=== PATIENT | female | born 1955 | race Caucasian/White ===

== ENCOUNTER 2022-06-11 15:03 | Inpatient (IN) | payer MEDICARE, OTHER ==
[2022-06-11 16:53] LABS: #Basophils 0.1 thou/uL (0.0-0.2); #Eosinphils 0.3 thou/uL (0.0-0.7); #Lymphocytes 2.4 thou/uL (1.20-3.40); #Neutrophils 6.4 thou/uL (1.40-6.50); %Basophils 1.1 % (0.0-1.0); %Lymphocytes 23.7 % (21.0-51.0); %Monocytes 9.7 % (0.0-10.0); %Neutrophils 62.5 % (42.0-75.0); Mean Corpuscular HGB CONC 32.3 g/dL (32.0-36.0); Mean Corpuscular Hemoglobin 28.3 pg (27.0-31.0); Mean Corpuscular Volume 87.5 fl (78.0-98.0); Mean Platelet Volume 8.6 fL (7.4-10.4); Platelet Count 234 10x3/uL (130-400); White Blood Cell (WBC) Count 10.2 10x3/uL (4.8-10.8)
[2022-06-11 17:11] LABS: Bacteria/HPF 2+ HPF (None Seen); Bilirubin Negative (Negative); Blood, Urine Trace (Negative); Clarity Turbid (Clear); Glucose, Urine (Dipstick) Greater than 1000 mg/dL (Negative); Ketone, Urine Negative (Negative); Leukocyte 250 Leu/uL (Negative); Nitrite Negative (Negative); Protein, Urine (Dipstick) 200 mg/dL (Neg-Trace); RBC/HPF 0-3 HPF (0-3); Specific Gravity, Urine 1.013 (1.002-1.036); Squamous Epithelial 0-3 HPF (0-3); Urobilinogen Normal mg/dL (Less than 2); WBC/HPF Greater than 50 HPF (0-3)
[2022-06-11] MEDS ORDERED: Acetaminophen 500 MG TAB ONE (17:15)
[2022-06-11] MEDS ORDERED: Ibuprofen 200 MG TAB ONE (17:15)
[2022-06-11 17:17] LABS: ALT (SGPT) 24 U/L (8-55); AST (SGOT) 18 U/L (5-34); Alkaline Phosphatase 129 U/L (40-110); Anion Gap 11 mmol/L (10-20); BUN (Urea Nitrogen) 18 mg/dL (9.8-20.1); Bilirubin, Total 0.4 mg/dL (0.2-1.2); Calc. Creatinine Clearance 0 mL/min (70-130); Calcium 9.3 mg/dL (7.8-10.44); Carbon Dioxide 26 mmol/L (23-31); Chloride 107 mmol/L (98-107); Estimated GFR 28; Globulin 3.6 g/dL (2.4-3.5); Glucose 97 mg/dL (80-115); Potassium 4.4 mmol/L (3.5-5.1); Protein, Total 7.6 g/dL (5.8-8.1); Sodium 140 mmol/L (136-145)
[2022-06-11] MEDS ORDERED: cefTRIAXone\\ROCEPHIN 2 GM VIAL ONE (18:24)
[2022-06-11] MEDS ORDERED: Senokot S 8.6-50 MG TAB PO PRN (22:21)
[2022-06-11] MEDS ORDERED: Acetaminophen 325 MG TAB PO PRN (22:21)
[2022-06-11] MEDS ORDERED: Sodium Chloride 0.9% 1,000 ML IV SCH (22:30)
[2022-06-11 22:45] LABS: Hemoglobin A1c 7.4 % (4.0-6.0)
[2022-06-12 07:28] LABS: #Basophils 0.1 thou/uL (0.0-0.2); #Eosinphils 0.3 thou/uL (0.0-0.7); #Lymphocytes 1.3 thou/uL (1.20-3.40); #Monocytes 0.9 thou/uL (0.11-0.59); %Basophils 0.6 % (0.0-1.0); %Eosinophils 2.6 % (0.0-10.0); %Lymphocytes 12.4 % (21.0-51.0); %Monocytes 8.4 % (0.0-10.0); %Neutrophils 76.1 % (42.0-75.0); Hemoglobin 12.7 g/dL (12.0-16.0); Mean Corpuscular HGB CONC 31.1 g/dL (32.0-36.0); Mean Corpuscular Hemoglobin 27.7 pg (27.0-31.0); Mean Corpuscular Volume 89.1 fl (78.0-98.0); Mean Platelet Volume 8.4 fL (7.4-10.4); Platelet Count 224 10x3/uL (130-400); RBC Distribution Width 14.1 % (11.5-14.5); Red Blood Cell (RBC) Count 4.59 mill/uL (4.20-5.40); White Blood Cell (WBC) Count 10.4 10x3/uL (4.8-10.8)
[2022-06-12 07:59] LABS: Anion Gap 13 mmol/L (10-20); BUN (Urea Nitrogen) 17 mg/dL (9.8-20.1); Calc. Creatinine Clearance 0 mL/min (70-130); Calcium 8.8 mg/dL (7.8-10.44); Carbon Dioxide 25 mmol/L (23-31); Chloride 110 mmol/L (98-107); Estimated GFR 33; Glucose 135 mg/dL (80-115); Sodium 144 mmol/L (136-145)
[2022-06-12] MEDS ORDERED: Famotidine 20 MG TAB ONE (09:33)
[2022-06-12] MEDS: Heparin 5,000 UNITS/ML VIAL SC SCH ×3 (09:41→20:28)
[2022-06-12] MEDS: Famotidine 20 MG TAB PO SCH (09:43)
[2022-06-12] MEDS ORDERED: Dextrose 5% in Water 1,000 ML IV PRN (10:23)
[2022-06-12] MEDS ORDERED: Dextrose 50% Abboject 50 ML SYRINGE SLOW IVP PRN (10:23)
[2022-06-12] MEDS ORDERED: HumaLOG 300 UNITS/3 ML VIAL SC PRN ×2 (10:23)
[2022-06-12 11:14] VITALS: BMI 35.7
[2022-06-12] MEDS ORDERED: FLU VACC QS2022-23(65YR UP)/PF 240 MCG/0.7 ML SYRINGE IM ONE (11:30)
[2022-06-12] MEDS ORDERED: Amlodipine 10 MG TAB PO SCH (14:15)
[2022-06-12] MEDS: cefTRIAXone\\ROCEPHIN 2 GM in Sodium Chloride 0.9% 100 ML IVPB SCH (17:30)
[2022-06-12] MEDS: Sodium Bicarbonate Tab 325 MG TAB PO SCH (20:30)
[2022-06-12] MEDS: Atorvastatin Calcium 40 MG TAB PO SCH (20:30)
[2022-06-13 06:52] LABS: #Eosinphils 0.3 thou/uL (0.0-0.7); #Lymphocytes 2.3 thou/uL (1.20-3.40); #Monocytes 1.2 thou/uL (0.11-0.59); #Neutrophils 6.1 thou/uL (1.40-6.50); %Basophils 0.3 % (0.0-1.0); %Lymphocytes 23.2 % (21.0-51.0); %Monocytes 12.4 % (0.0-10.0); %Neutrophils 61.1 % (42.0-75.0); Hemoglobin 13.1 g/dL (12.0-16.0); Mean Corpuscular HGB CONC 31.3 g/dL (32.0-36.0); Mean Corpuscular Hemoglobin 27.7 pg (27.0-31.0); Mean Corpuscular Volume 88.5 fl (78.0-98.0); Mean Platelet Volume 8.7 fL (7.4-10.4); Platelet Count 213 10x3/uL (130-400); Red Blood Cell (RBC) Count 4.74 mill/uL (4.20-5.40)
[2022-06-13 07:13] LABS: Anion Gap 13 mmol/L (10-20); BUN (Urea Nitrogen) 16 mg/dL (9.8-20.1); Calc. Creatinine Clearance 49 mL/min (70-130); Calcium 9.3 mg/dL (7.8-10.44); Carbon Dioxide 22 mmol/L (23-31); Chloride 110 mmol/L (98-107); Estimated GFR 35; Glucose 110 mg/dL (80-115); Potassium 3.8 mmol/L (3.5-5.1); Sodium 141 mmol/L (136-145)
[2022-06-13] MEDS: Aspirin 81 mg Enteric Coated Tablet PO SCH (08:09)
[2022-06-13] MEDS: Amitriptyline HCl 25 MG TAB PO SCH (08:10)
[2022-06-13] MEDS: Cholecalciferol 1,000 UNITS (25 MCG) TAB PO SCH (08:10)
[2022-06-13] MEDS: Empagliflozin 25 MG TAB PO SCH (08:11)
[2022-06-13] MEDS: Sodium Bicarbonate Tab 325 MG TAB PO SCH ×2 (08:11→20:23)
[2022-06-13] MEDS: Famotidine 20 MG TAB PO SCH (08:11)
[2022-06-13] MEDS: Amlodipine 10 MG TAB PO SCH (08:11)
[2022-06-13] MEDS: Bupropion 150 MG SR TAB PO SCH (08:12)
[2022-06-13] MEDS: Heparin 5,000 UNITS/ML VIAL SC SCH ×2 (08:13→15:49)
[2022-06-13] MEDS ORDERED: Pioglitazone HCl 15 MG TAB PO SCH (09:00)
[2022-06-13] MEDS: cefTRIAXone\\ROCEPHIN 2 GM in Sodium Chloride 0.9% 100 ML IVPB SCH ×2 (18:35→18:43)
[2022-06-13] MEDS: Atorvastatin Calcium 40 MG TAB PO SCH (20:23)
[2022-06-13] MEDS: Apixaban 5 MG TAB PO SCH (20:23)
[2022-06-14 06:24] LABS: #Basophils 0.1 thou/uL (0.0-0.2); #Eosinphils 0.4 thou/uL (0.0-0.7); #Monocytes 1.1 thou/uL (0.11-0.59); #Neutrophils 5.1 thou/uL (1.40-6.50); %Eosinophils 3.6 % (0.0-10.0); %Lymphocytes 30.6 % (21.0-51.0); %Monocytes 11.6 % (0.0-10.0); %Neutrophils 53.2 % (42.0-75.0); Hemoglobin 12.5 g/dL (12.0-16.0); Mean Corpuscular HGB CONC 31.3 g/dL (32.0-36.0); Mean Corpuscular Hemoglobin 27.6 pg (27.0-31.0); Mean Corpuscular Volume 87.9 fl (78.0-98.0); Mean Platelet Volume 8.6 fL (7.4-10.4); Platelet Count 216 10x3/uL (130-400); Red Blood Cell (RBC) Count 4.54 mill/uL (4.20-5.40); White Blood Cell (WBC) Count 9.7 10x3/uL (4.8-10.8)
[2022-06-14 06:50] LABS: Anion Gap 12 mmol/L (10-20); BUN (Urea Nitrogen) 22 mg/dL (9.8-20.1); Calc. Creatinine Clearance 45 mL/min (70-130); Calcium 8.9 mg/dL (7.8-10.44); Carbon Dioxide 21 mmol/L (23-31); Chloride 112 mmol/L (98-107); Estimated GFR 32; Glucose 121 mg/dL (80-115); Potassium 3.5 mmol/L (3.5-5.1); Sodium 141 mmol/L (136-145)
[2022-06-14] MEDS: Famotidine 20 MG TAB PO SCH (08:43)
[2022-06-14] MEDS: Sodium Bicarbonate Tab 325 MG TAB PO SCH ×2 (08:43→21:20)
[2022-06-14] MEDS: Aspirin 81 mg Enteric Coated Tablet PO SCH (08:43)
[2022-06-14] MEDS: Apixaban 5 MG TAB PO SCH ×2 (08:43→21:21)
[2022-06-14] MEDS: Amitriptyline HCl 25 MG TAB PO SCH (08:43)
[2022-06-14] MEDS: Bupropion 150 MG SR TAB PO SCH (08:43)
[2022-06-14] MEDS: Amlodipine 10 MG TAB PO SCH (08:43)
[2022-06-14] MEDS: Cholecalciferol 1,000 UNITS (25 MCG) TAB PO SCH (08:43)
[2022-06-14] MEDS: Empagliflozin 25 MG TAB PO SCH (08:45)
[2022-06-14] MEDS: cefTRIAXone\\ROCEPHIN 2 GM in Sodium Chloride 0.9% 100 ML IVPB SCH (18:37)
[2022-06-14] MEDS: Atorvastatin Calcium 40 MG TAB PO SCH (21:21)
[2022-06-15] MEDS: Amitriptyline HCl 25 MG TAB PO SCH (08:06)
[2022-06-15] MEDS: Sodium Bicarbonate Tab 325 MG TAB PO SCH ×2 (08:06→20:25)
[2022-06-15] MEDS: Empagliflozin 25 MG TAB PO SCH (08:06)
[2022-06-15] MEDS: Cholecalciferol 1,000 UNITS (25 MCG) TAB PO SCH (08:06)
[2022-06-15] MEDS: Apixaban 5 MG TAB PO SCH ×2 (08:07→20:25)
[2022-06-15] MEDS: Famotidine 20 MG TAB PO SCH (08:07)
[2022-06-15] MEDS: Bupropion 150 MG SR TAB PO SCH (08:07)
[2022-06-15] MEDS: Amlodipine 10 MG TAB PO SCH (08:07)
[2022-06-15] MEDS: Aspirin 81 mg Enteric Coated Tablet PO SCH (08:07)
[2022-06-15 13:12] LABS: Anion Gap 15 mmol/L (10-20); BUN (Urea Nitrogen) 29 mg/dL (9.8-20.1); Calc. Creatinine Clearance 40 mL/min (70-130); Calcium 9.3 mg/dL (7.8-10.44); Carbon Dioxide 24 mmol/L (23-31); Chloride 108 mmol/L (98-107); Estimated GFR 28; Glucose 183 mg/dL (80-115); Potassium 3.7 mmol/L (3.5-5.1); Sodium 143 mmol/L (136-145)
[2022-06-15] MEDS ORDERED: Melatonin 3 MG TAB PO PRN (16:21)
[2022-06-15] MEDS: Cefdinir 300 MG CAP PO SCH (20:24)
[2022-06-15] MEDS: Atorvastatin Calcium 40 MG TAB PO SCH (20:24)
[2022-06-16 08:11] LABS: Anion Gap 15 mmol/L (10-20); BUN (Urea Nitrogen) 28 mg/dL (9.8-20.1); Calc. Creatinine Clearance 41 mL/min (70-130); Carbon Dioxide 20 mmol/L (23-31); Chloride 114 mmol/L (98-107); Potassium 3.9 mmol/L (3.5-5.1); Sodium 145 mmol/L (136-145)
[2022-06-16 08:12] LABS: Calcium 9.3 mg/dL (7.8-10.44); Estimated GFR 28; Glucose 109 mg/dL (80-115)
[2022-06-16] MEDS ORDERED: Sodium Bicarbonate Tab 325 MG TAB PO SCH (09:00)
[2022-06-16] MEDS: Amitriptyline HCl 25 MG TAB PO SCH (09:19)
[2022-06-16] MEDS: Aspirin 81 mg Enteric Coated Tablet PO SCH (09:19)
[2022-06-16] MEDS: Famotidine 20 MG TAB PO SCH (09:20)
[2022-06-16] MEDS: Amlodipine 10 MG TAB PO SCH (09:20)
[2022-06-16] MEDS: Cholecalciferol 1,000 UNITS (25 MCG) TAB PO SCH (09:20)
[2022-06-16] MEDS: Bupropion 150 MG SR TAB PO SCH (09:20)
[2022-06-16] MEDS: Cefdinir 300 MG CAP PO SCH (09:20)
[2022-06-16] MEDS: Apixaban 5 MG TAB PO SCH (09:20)
[2022-06-16] MEDS: Empagliflozin 25 MG TAB PO SCH (09:20)
[2022-06-16 15:36] VITALS: TEMP 97.6
[2022-06-16 17:01] VITALS: BP 156/88
== END 2022-06-16 17:01 | disposition home health service (06) | DRG 689 ==
LOC: ERS 15:03 → ERHOLD 21:35 → T4-B 06-12 10:29 → OBSVTOIN 06-12 16:40
PROVIDERS: ADMIT Internal Medicine; ATTEND Internal Medicine
DX: N39.0 Urinary tract infection, site not specified (principal); G93.41 Metabolic encephalopathy; N18.4 Chronic kidney disease, stage 4 (severe); N17.9 Acute kidney failure, unspecified; E87.20 Acidosis, unspecified; F03.90 Unspecified dementia, unspecified severity, without behavioral disturbance, psychotic disturbance, mood disturbance, and anxiety; B96.20 Unspecified Escherichia coli [E. coli] as the cause of diseases classified elsewhere; I25.10 Atherosclerotic heart disease of native coronary artery without angina pectoris; E11.22 Type 2 diabetes mellitus with diabetic chronic kidney disease; I12.9 Hypertensive chronic kidney disease with stage 1 through stage 4 chronic kidney disease, or unspecified chronic kidney disease; Z88.0 Allergy status to penicillin; Z28.21 Immunization not carried out because of patient refusal; I69.328 Other speech and language deficits following cerebral infarction; Z87.440 Personal history of urinary (tract) infections
CPT/HCPCS: 36415; 36416; 51701; 70450; 71046; 76770; 80048; 80053; 81003; 81015; 83036; 84443; 85025; 87040; 87077; 87086; 87186; 93005; 96365; G0378; J0696; J1644; J3490; J7050

== ENCOUNTER 2022-11-19 16:59 | Inpatient (IN) | payer MEDICARE ==
[2022-11-19 18:15] LABS: #Basophils 0.1 thou/uL (0.0-0.2); #Monocytes 1.1 thou/uL (0.11-0.59); #Neutrophils 18.8 thou/uL (1.40-6.50); %Basophils 0.3 % (0.0-1.0); %Lymphocytes 10.4 % (21.0-51.0); %Neutrophils 83.5 % (42.0-75.0); Hemoglobin 8.7 g/dL (12.0-16.0); Mean Corpuscular HGB CONC 30.3 g/dL (32.0-36.0); Mean Corpuscular Hemoglobin 26.9 pg (27.0-31.0); Mean Corpuscular Volume 88.9 fl (78.0-98.0); Mean Platelet Volume 10.9 fL (7.4-10.4); Platelet Count 214 10x3/uL (130-400); RBC Distribution Width 17.5 % (11.5-14.5); Red Blood Cell (RBC) Count 3.23 mill/uL (4.20-5.40); White Blood Cell (WBC) Count 22.5 10x3/uL (4.8-10.8)
[2022-11-19 18:33] LABS: Bacteria/HPF 4+ HPF (None Seen); Bilirubin Negative (Negative); Blood, Urine Trace (Negative); Clarity Turbid (Clear); Glucose, Urine (Dipstick) 500 mg/dL (Negative); Ketone, Urine Negative (Negative); Leukocyte 500 Leu/uL (Negative); Nitrite Negative (Negative); Protein, Urine (Dipstick) 50 mg/dL (Neg-Trace); RBC/HPF 0-3 HPF (0-3); Specific Gravity, Urine 1.014 (1.002-1.036); Squamous Epithelial 0-3 HPF (0-3); Urobilinogen Normal mg/dL (Less than 2); WBC/HPF Greater than 50 HPF (0-3)
[2022-11-19 18:36] LABS: ALT (SGPT) 28 U/L (8-55); AST (SGOT) 22 U/L (5-34); Albumin 3.6 g/dL (3.4-4.8); Alkaline Phosphatase 70 U/L (40-110); Anion Gap 17 mmol/L (10-20); BUN (Urea Nitrogen) 86 mg/dL (9.8-20.1); Bilirubin, Total 0.4 mg/dL (0.2-1.2); Calc. Creatinine Clearance 0 mL/min (70-130); Calcium 8.9 mg/dL (7.8-10.44); Carbon Dioxide 16 mmol/L (23-31); Chloride 119 mmol/L (98-107); Estimated GFR 21; Globulin 2.3 g/dL (2.4-3.5); Glucose 163 mg/dL (80-115); Lipase 48 U/L (8-78); Magnesium 2.3 mg/dL (1.6-2.6); Potassium 4.9 mmol/L (3.5-5.1); Protein, Total 5.9 g/dL (5.8-8.1); Sodium 147 mmol/L (136-145)
[2022-11-19] MEDS ORDERED: Cefepime 2 GM VIAL ONE (18:58)
[2022-11-19 21:21] LABS: Lactic Acid 3.3 mmol/L (0.5-2.2)
[2022-11-19] MEDS ORDERED: Dextrose 5%-Lactated Ringers 1,000 ML IV SCH (23:15)
[2022-11-19] MEDS ORDERED: Lactated Ringer's 500 ML IV SCH (23:30)
[2022-11-19] MEDS ORDERED: Ondansetron PF 4 MG/2 ML Vial IVP PRN (23:31)
[2022-11-19] MEDS ORDERED: Acetaminophen 325 MG TAB PO PRN (23:31)
[2022-11-19] MEDS ORDERED: Calcium Carbonate 500 MG ChewTAB PO PRN (23:31)
[2022-11-19] MEDS ORDERED: Ondansetron ODT 4 MG TAB PO PRN (23:31)
[2022-11-19] MEDS ORDERED: Senokot S 8.6-50 MG TAB PO PRN (23:31)
[2022-11-20 01:41] LABS: Troponin I 0.038 ng/mL (< 0.028)
[2022-11-20 04:28] LABS: #Basophils 0.1 thou/uL (0.0-0.2); #Monocytes 1.4 thou/uL (0.11-0.59); %Basophils 0.5 % (0.0-1.0); %Eosinophils 0.3 % (0.0-10.0); %Lymphocytes 24.6 % (21.0-51.0); %Monocytes 9.3 % (0.0-10.0); %Neutrophils 64.9 % (42.0-75.0); Hemoglobin 7.5 g/dL (12.0-16.0); Mean Corpuscular HGB CONC 30.1 g/dL (32.0-36.0); Mean Corpuscular Hemoglobin 27.5 pg (27.0-31.0); Mean Corpuscular Volume 91.2 fl (78.0-98.0); Mean Platelet Volume 10.7 fL (7.4-10.4); Platelet Count 204 10x3/uL (130-400); Red Blood Cell (RBC) Count 2.73 mill/uL (4.20-5.40); White Blood Cell (WBC) Count 15.3 10x3/uL (4.8-10.8)
[2022-11-20 04:43] LABS: ALT (SGPT) 21 U/L (8-55); AST (SGOT) 16 U/L (5-34); Albumin 3.1 g/dL (3.4-4.8); Alkaline Phosphatase 54 U/L (40-110); Anion Gap 13 mmol/L (10-20); BUN (Urea Nitrogen) 67 mg/dL (9.8-20.1); Bilirubin, Total 0.2 mg/dL (0.2-1.2); Calc. Creatinine Clearance 36 mL/min (70-130); Calcium 8.4 mg/dL (7.8-10.44); Carbon Dioxide 20 mmol/L (23-31); Chloride 120 mmol/L (98-107); Estimated GFR 27; Globulin 2.2 g/dL (2.4-3.5); Glucose 113 mg/dL (80-115); Potassium 4.2 mmol/L (3.5-5.1); Protein, Total 5.3 g/dL (5.8-8.1); Sodium 149 mmol/L (136-145)
[2022-11-20 04:45] LABS: Lactic Acid 1.7 mmol/L (0.5-2.2)
[2022-11-20 04:47] LABS: Troponin I 0.051 ng/mL (< 0.028)
[2022-11-20 05:01] LABS: Hemoglobin A1c 6.6 % (4.0-6.0)
[2022-11-20] MEDS ORDERED: Cefepime 1 GM in Sodium Chloride 0.9% 100 ML IVPB SCH (09:00)
[2022-11-20] MEDS ORDERED: Aspirin 81 mg Enteric Coated Tablet PO SCH (09:00)
[2022-11-20] MEDS ORDERED: Famotidine/PF 20 mg/2ml Vial SLOW IVP SCH (09:00)
[2022-11-20] MEDS ORDERED: Famotidine 20 MG TAB PO SCH (09:00)
[2022-11-20] MEDS: Dextrose 5% in Water 500 ML IV SCH ×2 (09:56→21:39)
[2022-11-20] MEDS: Heparin 5,000 UNITS/ML VIAL SC SCH ×3 (09:57→21:46)
[2022-11-20] MEDS: Atorvastatin Calcium 40 MG TAB PO SCH (10:00)
[2022-11-20] MEDS: Empagliflozin 25 MG TAB PO SCH (10:00)
[2022-11-20] MEDS: Sodium Bicarbonate Tab 325 MG TAB PO SCH (10:00)
[2022-11-20] MEDS: Bupropion 150 MG SR TAB PO SCH (10:01)
[2022-11-20] MEDS: Cholecalciferol 1,000 UNITS (25 MCG) TAB PO SCH (10:01)
[2022-11-20] MEDS: Amitriptyline HCl 25 MG TAB PO SCH (10:01)
[2022-11-20] MEDS: Amlodipine 10 MG TAB PO SCH (10:01)
[2022-11-20 13:23] LABS: Anion Gap 13 mmol/L (10-20); BUN (Urea Nitrogen) 56 mg/dL (9.8-20.1); Calc. Creatinine Clearance 38 mL/min (70-130); Calcium 8.8 mg/dL (7.8-10.44); Carbon Dioxide 18 mmol/L (23-31); Chloride 123 mmol/L (98-107); Estimated GFR 30; Glucose 148 mg/dL (80-115); Potassium 4.1 mmol/L (3.5-5.1); Sodium 150 mmol/L (136-145)
[2022-11-20] MEDS: Cefepime 1 GM in Sodium Chloride 0.9% 100 ML IVPB SCH (21:42)
[2022-11-21 04:19] LABS: #Basophils 0.1 thou/uL (0.0-0.2); #Eosinphils 0.2 thou/uL (0.0-0.7); #Monocytes 0.8 thou/uL (0.11-0.59); %Basophils 0.5 % (0.0-1.0); %Eosinophils 1.9 % (0.0-10.0); %Lymphocytes 35.5 % (21.0-51.0); %Monocytes 7.6 % (0.0-10.0); %Neutrophils 54.2 % (42.0-75.0); Hemoglobin 6.2 g/dL (12.0-16.0); Mean Corpuscular HGB CONC 30.1 g/dL (32.0-36.0); Mean Corpuscular Hemoglobin 26.8 pg (27.0-31.0); Mean Corpuscular Volume 89.2 fl (78.0-98.0); Mean Platelet Volume 11.1 fL (7.4-10.4); Platelet Count 177 10x3/uL (130-400); RBC Distribution Width 18.4 % (11.5-14.5); Red Blood Cell (RBC) Count 2.31 mill/uL (4.20-5.40)
[2022-11-21 04:32] LABS: Anion Gap 11 mmol/L (10-20); BUN (Urea Nitrogen) 40 mg/dL (9.8-20.1); Calc. Creatinine Clearance 39 mL/min (70-130); Calcium 8.8 mg/dL (7.8-10.44); Carbon Dioxide 21 mmol/L (23-31); Chloride 122 mmol/L (98-107); Estimated GFR 30; Glucose 115 mg/dL (80-115); Potassium 3.6 mmol/L (3.5-5.1); Sodium 150 mmol/L (136-145)
[2022-11-21] MEDS: Dextrose 5% in Water 500 ML IV SCH ×3 (05:28→13:25)
[2022-11-21] MEDS ORDERED: Furosemide 40 MG/4 ML VIAL SLOW IVP SCH (09:00)
[2022-11-21] MEDS: Pantoprazole 40 MG VIAL IVP SCH ×2 (09:13→21:26)
[2022-11-21] MEDS: Cefepime 1 GM in Sodium Chloride 0.9% 100 ML IVPB SCH ×2 (09:13→21:25)
[2022-11-21] MEDS: Amitriptyline HCl 25 MG TAB PO SCH (10:22)
[2022-11-21] MEDS: Bupropion 150 MG SR TAB PO SCH (10:22)
[2022-11-21] MEDS: Cholecalciferol 1,000 UNITS (25 MCG) TAB PO SCH (10:22)
[2022-11-21] MEDS: Sodium Bicarbonate Tab 325 MG TAB PO SCH (10:22)
[2022-11-21] MEDS: Empagliflozin 25 MG TAB PO SCH (10:22)
[2022-11-21] MEDS: Amlodipine 10 MG TAB PO SCH (10:22)
[2022-11-21] MEDS: Atorvastatin Calcium 40 MG TAB PO SCH (10:22)
[2022-11-21 14:16] LABS: #Basophils 0.1 thou/uL (0.0-0.2); #Eosinphils 0.3 thou/uL (0.0-0.7); #Monocytes 0.9 thou/uL (0.11-0.59); #Neutrophils 5.1 thou/uL (1.40-6.50); %Basophils 0.7 % (0.0-1.0); %Eosinophils 2.7 % (0.0-10.0); %Lymphocytes 33.4 % (21.0-51.0); %Monocytes 9.3 % (0.0-10.0); %Neutrophils 53.6 % (42.0-75.0); Hemoglobin 8.2 g/dL (12.0-16.0); Mean Corpuscular HGB CONC 30.4 g/dL (32.0-36.0); Mean Corpuscular Hemoglobin 27.5 pg (27.0-31.0); Mean Corpuscular Volume 90.6 fl (78.0-98.0); Mean Platelet Volume 10.8 fL (7.4-10.4); Platelet Count 159 10x3/uL (130-400); Red Blood Cell (RBC) Count 2.98 mill/uL (4.20-5.40); White Blood Cell (WBC) Count 9.5 10x3/uL (4.8-10.8)
[2022-11-21 14:36] LABS: Anion Gap 14 mmol/L (10-20); BUN (Urea Nitrogen) 33 mg/dL (9.8-20.1); Calc. Creatinine Clearance 37 mL/min (70-130); Calcium 8.7 mg/dL (7.8-10.44); Carbon Dioxide 21 mmol/L (23-31); Chloride 113 mmol/L (98-107); Estimated GFR 28; Glucose 170 mg/dL (80-115); Potassium 3.6 mmol/L (3.5-5.1); Sodium 144 mmol/L (136-145)
[2022-11-22] MEDS: Dextrose 5 % And 0.9 % NaCl 1,000 ML IV SCH ×3 (01:44→23:28)
[2022-11-22 04:38] LABS: #Basophils 0.1 thou/uL (0.0-0.2); #Eosinphils 0.2 thou/uL (0.0-0.7); #Monocytes 0.9 thou/uL (0.11-0.59); #Neutrophils 5.2 thou/uL (1.40-6.50); %Basophils 0.5 % (0.0-1.0); %Eosinophils 2.5 % (0.0-10.0); %Lymphocytes 31.3 % (21.0-51.0); %Monocytes 9.3 % (0.0-10.0); %Neutrophils 56.2 % (42.0-75.0); Hemoglobin 7.8 g/dL (12.0-16.0); Mean Corpuscular HGB CONC 30.6 g/dL (32.0-36.0); Mean Corpuscular Hemoglobin 27.4 pg (27.0-31.0); Mean Corpuscular Volume 89.5 fl (78.0-98.0); Mean Platelet Volume 11.2 fL (7.4-10.4); Platelet Count 181 10x3/uL (130-400); RBC Distribution Width 17.5 % (11.5-14.5); Red Blood Cell (RBC) Count 2.85 mill/uL (4.20-5.40); White Blood Cell (WBC) Count 9.3 10x3/uL (4.8-10.8)
[2022-11-22 05:07] LABS: Anion Gap 9 mmol/L (10-20); BUN (Urea Nitrogen) 31 mg/dL (9.8-20.1); Calc. Creatinine Clearance 36 mL/min (70-130); Calcium 8.6 mg/dL (7.8-10.44); Carbon Dioxide 24 mmol/L (23-31); Chloride 113 mmol/L (98-107); Estimated GFR 28; Glucose 110 mg/dL (80-115); Potassium 3.4 mmol/L (3.5-5.1); Sodium 143 mmol/L (136-145)
[2022-11-22] MEDS: Atorvastatin Calcium 40 MG TAB PO SCH (10:24)
[2022-11-22] MEDS: Amlodipine 10 MG TAB PO SCH (10:24)
[2022-11-22] MEDS: Amitriptyline HCl 25 MG TAB PO SCH (10:24)
[2022-11-22] MEDS: Bupropion 150 MG SR TAB PO SCH (10:24)
[2022-11-22] MEDS: Cholecalciferol 1,000 UNITS (25 MCG) TAB PO SCH (10:25)
[2022-11-22] MEDS: Empagliflozin 25 MG TAB PO SCH (10:25)
[2022-11-22] MEDS: Sodium Bicarbonate Tab 325 MG TAB PO SCH (10:25)
[2022-11-22] MEDS: Cefepime 1 GM in Sodium Chloride 0.9% 100 ML IVPB SCH ×2 (10:58→20:36)
[2022-11-22] MEDS: Pantoprazole 40 MG VIAL IVP SCH ×2 (10:59→20:36)
[2022-11-22 13:38] LABS: Hemoglobin 7.9 g/dL (12.0-16.0); Platelet Count 163 10x3/uL (130-400)
[2022-11-22] MEDS: GoLYTELY 4,000 ml Bottle PO SCH ×2 (15:45→16:05)
[2022-11-23] MEDS ORDERED: Sodium Chloride 0.9% 500 ML IV SCH (01:00)
[2022-11-23] MEDS ORDERED: Metoprolol Tartrate 5 MG/5 ML VIAL IVP SCH (01:15)
[2022-11-23 05:01] LABS: #Eosinphils 0.1 thou/uL (0.0-0.7); #Monocytes 0.8 thou/uL (0.11-0.59); #Neutrophils 8.9 thou/uL (1.40-6.50); %Basophils 0.4 % (0.0-1.0); %Eosinophils 1.1 % (0.0-10.0); %Lymphocytes 12.3 % (21.0-51.0); %Monocytes 7.2 % (0.0-10.0); %Neutrophils 78.6 % (42.0-75.0); Hemoglobin 8.5 g/dL (12.0-16.0); Mean Corpuscular Hemoglobin 27.5 pg (27.0-31.0); Mean Corpuscular Volume 88.7 fl (78.0-98.0); Mean Platelet Volume 11.3 fL (7.4-10.4); Platelet Count 198 10x3/uL (130-400); RBC Distribution Width 17.7 % (11.5-14.5); Red Blood Cell (RBC) Count 3.09 mill/uL (4.20-5.40); White Blood Cell (WBC) Count 11.3 10x3/uL (4.8-10.8)
[2022-11-23 05:29] LABS: Anion Gap 11 mmol/L (10-20); BUN (Urea Nitrogen) 16 mg/dL (9.8-20.1); Calc. Creatinine Clearance 47 mL/min (70-130); Calcium 8.4 mg/dL (7.8-10.44); Carbon Dioxide 20 mmol/L (23-31); Chloride 117 mmol/L (98-107); Estimated GFR 37; Glucose 168 mg/dL (80-115); Potassium 2.9 mmol/L (3.5-5.1); Sodium 145 mmol/L (136-145)
[2022-11-23] MEDS ORDERED: Electrolyte Replacement Protocol 1 EACH FS SCH (08:30)
[2022-11-23] MEDS: Potassium Chloride 20 MEQ in Premix Bag 1 BAG IVPB SCH ×4 (09:17→15:56)
[2022-11-23] MEDS ORDERED: Ketamine In 0.9 % NaCl 50 MG/5 ML SYRINGE ONE (10:13)
[2022-11-23] MEDS ORDERED: PROPOFOL 40 ML ONE (10:13)
[2022-11-23] MEDS ORDERED: PROPOFOL 200 MG/20 ML VIAL ONE (10:15)
[2022-11-23] MEDS ORDERED: PHENYLEPHRINE-NS 100 MCG/ML 10 ML SYRINGE ONE (10:15)
[2022-11-23] MEDS: Cholecalciferol 1,000 UNITS (25 MCG) TAB PO SCH (12:30)
[2022-11-23] MEDS: Sodium Bicarbonate Tab 325 MG TAB PO SCH (12:30)
[2022-11-23] MEDS: Empagliflozin 25 MG TAB PO SCH (12:30)
[2022-11-23] MEDS: Atorvastatin Calcium 40 MG TAB PO SCH (12:30)
[2022-11-23] MEDS: Amitriptyline HCl 25 MG TAB PO SCH (12:31)
[2022-11-23] MEDS: Amlodipine 10 MG TAB PO SCH (12:31)
[2022-11-23] MEDS: Cefepime 1 GM in Sodium Chloride 0.9% 100 ML IVPB SCH ×2 (12:37→20:40)
[2022-11-23] MEDS: Bupropion 150 MG SR TAB PO SCH (12:37)
[2022-11-23] MEDS: Pantoprazole 40 MG VIAL IVP SCH ×2 (12:38→20:40)
[2022-11-23] MEDS: Dextrose 5 % And 0.9 % NaCl 1,000 ML IV SCH (12:38)
[2022-11-23 13:37] LABS: Magnesium 1.8 mg/dL (1.6-2.6); Potassium 3.1 mmol/L (3.5-5.1)
[2022-11-23] MEDS ORDERED: Magnesium 2 GM/50 ML(in water) 2 GM in Premix Bag 1 BAG IVPB SCH (14:15)
[2022-11-24 06:56] LABS: #Basophils 0.1 thou/uL (0.0-0.2); #Eosinphils 0.4 thou/uL (0.0-0.7); #Neutrophils 6.2 thou/uL (1.40-6.50); %Basophils 0.6 % (0.0-1.0); %Eosinophils 3.5 % (0.0-10.0); %Lymphocytes 22.9 % (21.0-51.0); %Monocytes 10.4 % (0.0-10.0); %Neutrophils 62.3 % (42.0-75.0); Hemoglobin 7.5 g/dL (12.0-16.0); Mean Corpuscular HGB CONC 31.1 g/dL (32.0-36.0); Mean Corpuscular Hemoglobin 28.1 pg (27.0-31.0); Mean Corpuscular Volume 90.3 fl (78.0-98.0); Mean Platelet Volume 10.6 fL (7.4-10.4); Platelet Count 169 10x3/uL (130-400); RBC Distribution Width 17.9 % (11.5-14.5); Red Blood Cell (RBC) Count 2.67 mill/uL (4.20-5.40); White Blood Cell (WBC) Count 9.9 10x3/uL (4.8-10.8)
[2022-11-24 07:21] LABS: Anion Gap 10 mmol/L (10-20); BUN (Urea Nitrogen) 10 mg/dL (9.8-20.1); Calc. Creatinine Clearance 49 mL/min (70-130); Calcium 8.4 mg/dL (7.8-10.44); Carbon Dioxide 19 mmol/L (23-31); Chloride 115 mmol/L (98-107); Estimated GFR 38; Glucose 119 mg/dL (80-115); Magnesium 2.2 mg/dL (1.6-2.6); Potassium 3.2 mmol/L (3.5-5.1); Sodium 141 mmol/L (136-145)
[2022-11-24] MEDS ORDERED: Potassium Chloride 20 MEQ TAB PO SCH (08:30)
[2022-11-24] MEDS: Cefepime 1 GM in Sodium Chloride 0.9% 100 ML IVPB SCH ×2 (11:41→20:07)
[2022-11-24] MEDS: Amitriptyline HCl 25 MG TAB PO SCH (11:42)
[2022-11-24] MEDS: Cholecalciferol 1,000 UNITS (25 MCG) TAB PO SCH (11:42)
[2022-11-24] MEDS: Amlodipine 10 MG TAB PO SCH (11:42)
[2022-11-24] MEDS: Pantoprazole 40 MG VIAL IVP SCH ×2 (11:42→20:07)
[2022-11-24] MEDS: Sodium Bicarbonate Tab 325 MG TAB PO SCH (11:42)
[2022-11-24] MEDS: Empagliflozin 25 MG TAB PO SCH (11:42)
[2022-11-24] MEDS: Atorvastatin Calcium 40 MG TAB PO SCH (11:42)
[2022-11-24] MEDS: Bupropion 150 MG SR TAB PO SCH (11:58)
[2022-11-25 05:00] LABS: #Basophils 0.1 thou/uL (0.0-0.2); #Eosinphils 0.3 thou/uL (0.0-0.7); #Monocytes 1.1 thou/uL (0.11-0.59); #Neutrophils 7.5 thou/uL (1.40-6.50); %Basophils 0.5 % (0.0-1.0); %Lymphocytes 15.6 % (21.0-51.0); %Monocytes 9.9 % (0.0-10.0); %Neutrophils 70.6 % (42.0-75.0); Hemoglobin 7.9 g/dL (12.0-16.0); Mean Corpuscular HGB CONC 30.7 g/dL (32.0-36.0); Mean Corpuscular Hemoglobin 27.8 pg (27.0-31.0); Mean Corpuscular Volume 90.5 fl (78.0-98.0); Mean Platelet Volume 10.7 fL (7.4-10.4); Platelet Count 188 10x3/uL (130-400); Red Blood Cell (RBC) Count 2.84 mill/uL (4.20-5.40); White Blood Cell (WBC) Count 10.7 10x3/uL (4.8-10.8)
[2022-11-25 05:33] LABS: Anion Gap 9 mmol/L (10-20); BUN (Urea Nitrogen) 16 mg/dL (9.8-20.1); Calc. Creatinine Clearance 44 mL/min (70-130); Calcium 8.4 mg/dL (7.8-10.44); Carbon Dioxide 21 mmol/L (23-31); Chloride 116 mmol/L (98-107); Estimated GFR 33; Glucose 148 mg/dL (80-115); Potassium 4.3 mmol/L (3.5-5.1); Sodium 142 mmol/L (136-145)
[2022-11-25] MEDS: Cholecalciferol 1,000 UNITS (25 MCG) TAB PO SCH (08:52)
[2022-11-25] MEDS: Empagliflozin 25 MG TAB PO SCH (08:52)
[2022-11-25] MEDS: Amitriptyline HCl 25 MG TAB PO SCH (08:52)
[2022-11-25] MEDS: Atorvastatin Calcium 40 MG TAB PO SCH (08:52)
[2022-11-25] MEDS: Pantoprazole 40 MG VIAL IVP SCH ×2 (08:53→20:44)
[2022-11-25] MEDS: Sodium Bicarbonate Tab 325 MG TAB PO SCH (08:53)
[2022-11-25] MEDS: Amlodipine 10 MG TAB PO SCH (08:53)
[2022-11-25] MEDS: Bupropion 150 MG SR TAB PO SCH (08:53)
[2022-11-25 14:29] VITALS: BMI 28.8
[2022-11-25] MEDS: Cyanocobalamin (Vitamin B-12) 1,000 MCG TAB PO SCH (20:44)
[2022-11-25] MEDS: Multivit, Therapeutic 1 TAB PO SCH (20:44)
[2022-11-25] MEDS: Folic Acid 1 MG TAB PO SCH (20:44)
[2022-11-26 07:03] LABS: #Basophils 0.1 thou/uL (0.0-0.2); #Eosinphils 0.3 thou/uL (0.0-0.7); #Neutrophils 5.5 thou/uL (1.40-6.50)
[2022-11-26 07:09] LABS: Anion Gap 10 mmol/L (10-20); BUN (Urea Nitrogen) 20 mg/dL (9.8-20.1); Calc. Creatinine Clearance 41 mL/min (70-130); Calcium 8.5 mg/dL (7.8-10.44); Carbon Dioxide 21 mmol/L (23-31); Chloride 113 mmol/L (98-107); Estimated GFR 31; Glucose 139 mg/dL (80-115); Potassium 3.8 mmol/L (3.5-5.1); Sodium 140 mmol/L (136-145)
[2022-11-26 07:37] LABS: #Monocytes 1.3 thou/uL (0.11-0.59); %Basophils 0.6 % (0.0-1.0); %Eosinophils 3.5 % (0.0-10.0); %Lymphocytes 22.5 % (21.0-51.0); %Monocytes 13.8 % (0.0-10.0); %Neutrophils 58.5 % (42.0-75.0); Hemoglobin 8.4 g/dL (12.0-16.0); Mean Corpuscular HGB CONC 31.1 g/dL (32.0-36.0); Mean Corpuscular Hemoglobin 27.5 pg (27.0-31.0); Mean Corpuscular Volume 88.5 fl (78.0-98.0); Mean Platelet Volume 11.7 fL (7.4-10.4); Platelet Count 198 10x3/uL (130-400); RBC Distribution Width 17.7 % (11.5-14.5); Red Blood Cell (RBC) Count 3.05 mill/uL (4.20-5.40); White Blood Cell (WBC) Count 9.4 10x3/uL (4.8-10.8)
[2022-11-26] MEDS: Amitriptyline HCl 25 MG TAB PO SCH (08:44)
[2022-11-26] MEDS: Amlodipine 10 MG TAB PO SCH (08:45)
[2022-11-26] MEDS: Pantoprazole 40 MG VIAL IVP SCH (08:45)
[2022-11-26] MEDS: Atorvastatin Calcium 40 MG TAB PO SCH (08:45)
[2022-11-26] MEDS: Cholecalciferol 1,000 UNITS (25 MCG) TAB PO SCH (08:45)
[2022-11-26] MEDS: Empagliflozin 25 MG TAB PO SCH (08:45)
[2022-11-26] MEDS: Sodium Bicarbonate Tab 325 MG TAB PO SCH (08:45)
[2022-11-26] MEDS: Bupropion 150 MG SR TAB PO SCH (08:47)
[2022-11-26] MEDS: Cyanocobalamin (Vitamin B-12) 1,000 MCG TAB PO SCH (20:15)
[2022-11-26] MEDS: Multivit, Therapeutic 1 TAB PO SCH (20:15)
[2022-11-26] MEDS: Folic Acid 1 MG TAB PO SCH (20:16)
[2022-11-27] MEDS: Empagliflozin 25 MG TAB PO SCH (09:12)
[2022-11-27] MEDS: Sodium Bicarbonate Tab 325 MG TAB PO SCH (09:12)
[2022-11-27] MEDS: Atorvastatin Calcium 40 MG TAB PO SCH (09:12)
[2022-11-27] MEDS: Amitriptyline HCl 25 MG TAB PO SCH (09:12)
[2022-11-27] MEDS: Bupropion 150 MG SR TAB PO SCH (09:12)
[2022-11-27] MEDS: Amlodipine 10 MG TAB PO SCH (09:12)
[2022-11-27] MEDS: Cholecalciferol 1,000 UNITS (25 MCG) TAB PO SCH (09:12)
[2022-11-27 11:54] VITALS: BP 130/80; TEMP 97.7
== END 2022-11-27 14:44 | DRG 871 ==
LOC: ERS 16:59 → 2NO 19:48 → T4-B 11-25 21:43
PROVIDERS: ADMIT Family Medicine; ATTEND Family Medicine
PROC: 3E03329 Introduction of Other Anti-infective into Peripheral Vein, Percutaneous Approach (ICD-10-PCS; principal; 2022-11-19)
PROC: 30233N1 Transfusion of Nonautologous Red Blood Cells into Peripheral Vein, Percutaneous Approach (ICD-10-PCS; 2022-11-21)
PROC: 0DB78ZX Excision of Stomach, Pylorus, Via Natural or Artificial Opening Endoscopic, Diagnostic (ICD-10-PCS; 2022-11-23)
PROC: 0DBP8ZZ Excision of Rectum, Via Natural or Artificial Opening Endoscopic (ICD-10-PCS; 2022-11-23)
DX: A41.51 Sepsis due to Escherichia coli [E. coli] (principal); G93.41 Metabolic encephalopathy; K25.4 Chronic or unspecified gastric ulcer with hemorrhage; D62 Acute posthemorrhagic anemia; N17.9 Acute kidney failure, unspecified; N39.0 Urinary tract infection, site not specified; E87.0 Hyperosmolality and hypernatremia; I24.8 Other forms of acute ischemic heart disease; E87.6 Hypokalemia; E11.22 Type 2 diabetes mellitus with diabetic chronic kidney disease; F03.90 Unspecified dementia, unspecified severity, without behavioral disturbance, psychotic disturbance, mood disturbance, and anxiety; D63.1 Anemia in chronic kidney disease; R79.89 Other specified abnormal findings of blood chemistry; I12.9 Hypertensive chronic kidney disease with stage 1 through stage 4 chronic kidney disease, or unspecified chronic kidney disease; E86.0 Dehydration; E86.1 Hypovolemia; E86.9 Volume depletion, unspecified; N18.30 Chronic kidney disease, stage 3 unspecified; K62.1 Rectal polyp; Z79.01 Long term (current) use of anticoagulants; Z88.0 Allergy status to penicillin; Z79.899 Other long term (current) drug therapy; Z79.82 Long term (current) use of aspirin; Z95.5 Presence of coronary angioplasty implant and graft; I69.328 Other speech and language deficits following cerebral infarction; Z79.84 Long term (current) use of oral hypoglycemic drugs
CPT/HCPCS: 36415; 36430; 51701; 70450; 71045; 74176; 80048; 80053; 81003; 81015; 82274; 82553; 82728; 83036; 83540; 83605; 83690; 83735; 83880; 84484; 85014; 85018; 85025; 85046; 86850; 86900; 86901; 87040; 87077; 87086; 87186; 88305; 88342; 93005; 93010; 93306; 96361; 96365; 97139; C9113; J0692; J1644; J1940; J2704; J3475; J3480; J3490; J7042; J7070; J7120; P9016; S0028

== ENCOUNTER 2023-12-08 14:44 | Emergency (ER) | payer MEDICARE ==
[2023-12-08 15:22] LABS: #Basophils 0.07 10x3/uL (0.0-0.2); %Basophils 0.4 % (0.0-1.0); %Eosinophils 0.5 % (0.0-10.0); %Lymphocytes 12.9 % (21.0-51.0); %Monocytes 10.8 % (0.0-10.0); %Neutrophils 75.1 % (42.0-75.0); Hematocrit 40.2 % (36.0-47.0); Hemoglobin 12.9 g/dL (12.0-16.0); Mean Corpuscular HGB CONC 32.1 g/dL (32.0-36.0); Mean Corpuscular Hemoglobin 27.5 pg (27.0-31.0); Mean Corpuscular Volume 85.7 fL (78.0-98.0); Platelet Count 229 10x3/uL (130-400); RBC Distribution Width 15.5 % (11.5-14.5); Red Blood Cell (RBC) Count 4.69 mill/uL (4.20-5.40)
[2023-12-08 15:39] LABS: ALT (SGPT) 33 U/L (8-55); AST (SGOT) 20 U/L (5-34); Albumin 3.2 g/dL (3.4-4.8); Alkaline Phosphatase 90 U/L (40-110); Anion Gap 13 mmol/L (10-20); BUN (Urea Nitrogen) 24 mg/dL (9.8-20.1); Bilirubin, Total 0.5 mg/dL (0.2-1.2); Calc. Creatinine Clearance 0 mL/min (70-130); Calcium 9.5 mg/dL (7.8-10.44); Carbon Dioxide 22 mmol/L (23-31); Chloride 111 mmol/L (98-107); Estimated GFR 30; Globulin 3.7 g/dL (2.4-3.5); Glucose 75 mg/dL (80-115); Lipase 61 U/L (8-78); Magnesium 2.1 mg/dL (1.6-2.6); Potassium 4.3 mmol/L (3.5-5.1); Protein, Total 6.9 g/dL (5.8-8.1); Sodium 142 mmol/L (136-145)
[2023-12-08] MEDS ORDERED: Ondansetron PF 4 MG/2 ML Vial ONE (15:39)
[2023-12-08 16:51] LABS: Bacteria/HPF None Seen HPF (None Seen); Bilirubin Negative (Negative); Blood, Urine Trace (Negative); CAUTI Indications for Culture Alt mental st,lethar; Clarity Clear (Clear); Glucose, Urine (Dipstick) Greater than 1000 mg/dL (Negative); Ketone, Urine Negative (Negative); Leukocyte Negative Leu/uL (Negative); Nitrite Negative (Negative); Protein, Urine (Dipstick) 300 mg/dL (Neg-Trace); RBC/HPF 0-3 HPF (0-3); Specific Gravity, Urine 1.019 (1.002-1.036); Squamous Epithelial 0-3 HPF (0-3); Urobilinogen Normal mg/dL (Less than 2); WBC/HPF 0-3 HPF (0-3)
[2023-12-08 17:01] LABS: Urine Culture Reflex No No
[2023-12-08] MEDS ORDERED: Ciprofloxacin Lactate D5W 400 mg (200 mL) BAG ONE (20:17)
[2023-12-08] MEDS ORDERED: metroNIDAZOLE 500 MG (100 mL) BAG ONE (20:18)
== END 2023-12-09 01:42 ==
LOC: ERS 14:44
DX: K52.9 Noninfective gastroenteritis and colitis, unspecified (principal); I10 Essential (primary) hypertension; E11.9 Type 2 diabetes mellitus without complications; E78.00 Pure hypercholesterolemia, unspecified; Z86.73 Personal history of transient ischemic attack (TIA), and cerebral infarction without residual deficits; Z87.891 Personal history of nicotine dependence; Z79.82 Long term (current) use of aspirin; Z79.84 Long term (current) use of oral hypoglycemic drugs; Z79.01 Long term (current) use of anticoagulants; Z79.899 Other long term (current) drug therapy; Z95.5 Presence of coronary angioplasty implant and graft
CPT/HCPCS: 36415; 71045; 74176; 80053; 81001; 83690; 83735; 85025; 87040; 96365; 96367; 96375; J0744; J2405

== ENCOUNTER 2024-01-14 08:29 | Emergency (ER) | payer MEDICARE ==
[2024-01-14 09:16] LABS: #Basophils 0.05 10x3/uL (0.0-0.2); %Basophils 0.6 % (0.0-1.0); %Eosinophils 0.4 % (0.0-10.0); %Lymphocytes 19.1 % (21.0-51.0); %Monocytes 16.3 % (0.0-10.0); %Neutrophils 63.2 % (42.0-75.0); Hematocrit 36.5 % (36.0-47.0); Mean Corpuscular HGB CONC 32.9 g/dL (32.0-36.0); Mean Corpuscular Hemoglobin 27.7 pg (27.0-31.0); Mean Corpuscular Volume 84.3 fL (78.0-98.0); Mean Platelet Volume 10.9 fL (7.4-10.4); Platelet Count 199 10x3/uL (130-400); RBC Distribution Width 15.3 % (11.5-14.5); Red Blood Cell (RBC) Count 4.33 mill/uL (4.20-5.40)
[2024-01-14 09:32] LABS: ALT (SGPT) 27 U/L (8-55); AST (SGOT) 28 U/L (5-34); Albumin 3.1 g/dL (3.4-4.8); Alkaline Phosphatase 70 U/L (40-110); Anion Gap 15 mmol/L (10-20); BUN (Urea Nitrogen) 30 mg/dL (9.8-20.1); Bilirubin, Total 0.4 mg/dL (0.2-1.2); Calc. Creatinine Clearance 0 mL/min (70-130); Calcium 9.2 mg/dL (7.8-10.44); Carbon Dioxide 20 mmol/L (23-31); Chloride 106 mmol/L (98-107); Estimated GFR 30; Globulin 3.8 g/dL (2.4-3.5); Glucose 104 mg/dL (80-115); Potassium 4.6 mmol/L (3.5-5.1); Protein, Total 6.9 g/dL (5.8-8.1); Sodium 136 mmol/L (136-145)
== END 2024-01-14 13:10 | disposition home or self-care (01) ==
LOC: ERS 08:29
DX: K92.1 Melena (principal); I48.91 Unspecified atrial fibrillation; J44.9 Chronic obstructive pulmonary disease, unspecified; E11.22 Type 2 diabetes mellitus with diabetic chronic kidney disease; I12.9 Hypertensive chronic kidney disease with stage 1 through stage 4 chronic kidney disease, or unspecified chronic kidney disease; N18.9 Chronic kidney disease, unspecified; Z86.73 Personal history of transient ischemic attack (TIA), and cerebral infarction without residual deficits; Z79.82 Long term (current) use of aspirin; Z79.84 Long term (current) use of oral hypoglycemic drugs; Z79.01 Long term (current) use of anticoagulants
CPT/HCPCS: 80053; 82274; 85025; 86850; 86900; 86901; 99285

== ENCOUNTER 2024-08-06 10:17 | Observation (INO) | payer MEDICARE, MEDICAID ==
[2024-08-06] MEDS ORDERED: Adenosine 6 mg (2 mL) VIAL ONE ×2 (10:49)
[2024-08-06 12:21] LABS: #Basophils 0.08 10x3/uL (0.0-0.2); %Basophils 0.9 % (0.0-1.0); %Eosinophils 3.3 % (0.0-10.0); %Lymphocytes 21.8 % (21.0-51.0); %Monocytes 9.6 % (0.0-10.0); Hematocrit 34.8 % (36.0-47.0); Hemoglobin 10.9 g/dL (12.0-16.0); Mean Corpuscular HGB CONC 31.3 g/dL (32.0-36.0); Mean Corpuscular Hemoglobin 26.8 pg (27.0-31.0); Mean Corpuscular Volume 85.7 fL (78.0-98.0); Mean Platelet Volume 10.7 fL (7.4-10.4); Platelet Count 254 10x3/uL (130-400); RBC Distribution Width 15.9 % (11.5-14.5); Red Blood Cell (RBC) Count 4.06 mill/uL (4.20-5.40)
[2024-08-06 12:44] LABS: ALT (SGPT) Less than 7 U/L (Less than 34); AST (SGOT) 30 U/L (11-34); Alkaline Phosphatase 78 U/L (40-110); Anion Gap 13 mmol/L (10-20); BUN (Urea Nitrogen) 18 mg/dL (9.8-20.1); Bilirubin, Total 0.3 mg/dL (0.3-1.2); Calc. Creatinine Clearance 0 mL/min (70-130); Calcium 8.7 mg/dL (7.8-10.44); Carbon Dioxide 25 mmol/L (23-31); Chloride 112 mmol/L (98-107); Estimated GFR 33; Globulin 3.1 g/dL (2.4-3.5); Glucose 135 mg/dL (83-110); Magnesium 1.7 mg/dL (1.6-2.6); Potassium 4.3 mmol/L (3.5-5.1); Protein, Total 6.1 g/dL (5.8-8.1); Sodium 146 mmol/L (136-145)
[2024-08-06 12:56] LABS: Troponin I 0.031 ng/mL (< 0.028)
[2024-08-06 16:46] LABS: Troponin I 0.286 ng/mL (< 0.028)
[2024-08-06] MEDS ORDERED: Dextrose 50% Abboject 50 ML SYRINGE SLOW IVP PRN (18:55)
[2024-08-06] MEDS ORDERED: Ondansetron ODT 4 MG TAB PO PRN (18:55)
[2024-08-06] MEDS ORDERED: Acetaminophen 325 MG TAB PO PRN (18:55)
[2024-08-06] MEDS ORDERED: Dextrose 5% in Water 1,000 ML IV PRN (18:55)
[2024-08-06] MEDS ORDERED: Glucagon 1 MG/ML KIT IM PRN (18:55)
[2024-08-06] MEDS ORDERED: Insulin Lispro 100 UNIT/ML 10 ML VIAL SC PRN (19:00)
[2024-08-06] MEDS ORDERED: Benzonatate 100 MG CAP PO PRN (19:40)
[2024-08-06] MEDS ORDERED: Ipratropium/Albuterol 3 ML NEB NEB PRN (19:40)
[2024-08-06 22:38] VITALS: BMI 32.8
[2024-08-06 23:13] LABS: Troponin I 0.435 ng/mL (< 0.028)
[2024-08-06] MEDS: Carvedilol 6.25 MG TAB PO SCH (23:13)
[2024-08-06] MEDS: Folic Acid 1 MG TAB PO SCH (23:13)
[2024-08-06] MEDS: Melatonin 3 MG TAB PO PRN (23:13)
[2024-08-06] MEDS: Apixaban 5 MG TAB PO SCH (23:14)
[2024-08-07 02:48] LABS: #Basophils 0.07 10x3/uL (0.0-0.2); %Basophils 0.7 % (0.0-1.0); %Eosinophils 3.4 % (0.0-10.0); %Lymphocytes 31.1 % (21.0-51.0); %Monocytes 10.1 % (0.0-10.0); %Neutrophils 54.5 % (42.0-75.0); Hematocrit 33.6 % (36.0-47.0); Hemoglobin 10.3 g/dL (12.0-16.0); Mean Corpuscular HGB CONC 30.7 g/dL (32.0-36.0); Mean Corpuscular Hemoglobin 26.4 pg (27.0-31.0); Mean Corpuscular Volume 86.2 fL (78.0-98.0); Mean Platelet Volume 10.5 fL (7.4-10.4); Platelet Count 216 10x3/uL (130-400); RBC Distribution Width 15.8 % (11.5-14.5)
[2024-08-07 03:06] LABS: Phosphorus 2.8 mg/dL (2.5-4.5)
[2024-08-07 03:07] LABS: Anion Gap 14 mmol/L (10-20); BUN (Urea Nitrogen) 24 mg/dL (9.8-20.1); Calc. Creatinine Clearance 32 mL/min (70-130); Calcium 8.7 mg/dL (7.8-10.44); Carbon Dioxide 20 mmol/L (23-31); Chloride 115 mmol/L (98-107); Estimated GFR 25; Glucose 100 mg/dL (83-110); Magnesium 1.7 mg/dL (1.6-2.6); Potassium 4.3 mmol/L (3.5-5.1); Sodium 145 mmol/L (136-145)
[2024-08-07] MEDS ORDERED: Finerenone [Kerendia] 10 MG Tablet PO SCH (09:00)
[2024-08-07] MEDS: Atorvastatin Calcium 40 MG TAB PO SCH (09:23)
[2024-08-07] MEDS: Aspirin 81 mg Enteric Coated Tablet PO SCH (09:23)
[2024-08-07] MEDS: Dapagliflozin Propanediol 10 MG TAB PO SCH (09:23)
[2024-08-07] MEDS: PARoxetine 20 MG TAB PO SCH (09:23)
[2024-08-07] MEDS: Ezetimibe 10 MG TAB PO SCH (09:23)
[2024-08-07] MEDS: NIFEdipine XL 90 MG ER.TAB PO SCH (09:24)
[2024-08-07] MEDS: Cholecalciferol 1,000 UNITS (25 MCG) TAB PO SCH (09:24)
[2024-08-07] MEDS: BuPROPion 100 MG SR.TAB PO SCH (10:36)
[2024-08-08 06:34] LABS: #Basophils 0.06 10x3/uL (0.0-0.2); %Basophils 0.6 % (0.0-1.0); %Eosinophils 4.3 % (0.0-10.0); %Lymphocytes 25.7 % (21.0-51.0); %Monocytes 10.5 % (0.0-10.0); %Neutrophils 58.6 % (42.0-75.0); Hematocrit 37.3 % (36.0-47.0); Hemoglobin 11.7 g/dL (12.0-16.0); Mean Corpuscular HGB CONC 31.4 g/dL (32.0-36.0); Mean Corpuscular Hemoglobin 26.5 pg (27.0-31.0); Mean Corpuscular Volume 84.4 fL (78.0-98.0); Mean Platelet Volume 10.6 fL (7.4-10.4); Platelet Count 286 10x3/uL (130-400); RBC Distribution Width 15.8 % (11.5-14.5); Red Blood Cell (RBC) Count 4.42 mill/uL (4.20-5.40)
[2024-08-08 06:57] LABS: Anion Gap 12 mmol/L (10-20); BUN (Urea Nitrogen) 24 mg/dL (9.8-20.1); Calc. Creatinine Clearance 37 mL/min (70-130); Calcium 9.5 mg/dL (7.8-10.44); Carbon Dioxide 24 mmol/L (23-31); Chloride 111 mmol/L (98-107); Estimated GFR 30; Glucose 111 mg/dL (83-110); Potassium 3.9 mmol/L (3.5-5.1); Sodium 143 mmol/L (136-145)
[2024-08-08 11:44] VITALS: BP 110/73; TEMP 98.1
== END 2024-08-08 13:23 | disposition home or self-care (01) ==
LOC: ERS 10:17 → OBS 19:39
PROVIDERS: ADMIT Family Medicine; ATTEND Family Medicine
PROC: B246ZZZ Ultrasonography of Right and Left Heart (ICD-10-PCS; principal; 2024-08-06)
DX: I47.10 Supraventricular tachycardia, unspecified (principal); R79.89 Other specified abnormal findings of blood chemistry; I13.10 Hypertensive heart and chronic kidney disease without heart failure, with stage 1 through stage 4 chronic kidney disease, or unspecified chronic kidney disease; N18.32 Chronic kidney disease, stage 3b; D63.1 Anemia in chronic kidney disease; E11.22 Type 2 diabetes mellitus with diabetic chronic kidney disease; I69.954 Hemiplegia and hemiparesis following unspecified cerebrovascular disease affecting left non-dominant side; J44.9 Chronic obstructive pulmonary disease, unspecified; F03.90 Unspecified dementia, unspecified severity, without behavioral disturbance, psychotic disturbance, mood disturbance, and anxiety; F32.9 Major depressive disorder, single episode, unspecified; G47.00 Insomnia, unspecified; E55.9 Vitamin D deficiency, unspecified; N39.46 Mixed incontinence; I48.0 Paroxysmal atrial fibrillation; Z79.82 Long term (current) use of aspirin; Z79.01 Long term (current) use of anticoagulants; Z79.84 Long term (current) use of oral hypoglycemic drugs; Z79.899 Other long term (current) drug therapy; Z87.891 Personal history of nicotine dependence; Z88.0 Allergy status to penicillin
CPT/HCPCS: 71045; 80048 ×2; 82565; 82962 ×3; 83735 ×2; 83880; 84100; 84484 ×3; 85025 ×2; 93005; 93306; 96374; 97530; 99285; G0378 ×4; J0153; 36415; 36416; 80053; 84443

== ENCOUNTER → 2024-09-03 | Emergency (ER) | payer MEDICARE, MEDICAID | LOC: ERS 21:40 | DX: S60.222A Contusion of left hand, initial encounter (principal); W18.11XA Fall from or off toilet without subsequent striking against object, initial encounter; E11.9 Type 2 diabetes mellitus without complications; I48.91 Unspecified atrial fibrillation; I10 Essential (primary) hypertension; I25.10 Atherosclerotic heart disease of native coronary artery without angina pectoris; J44.9 Chronic obstructive pulmonary disease, unspecified; Z86.73 Personal history of transient ischemic attack (TIA), and cerebral infarction without residual deficits; Z95.1 Presence of aortocoronary bypass graft; Z79.01 Long term (current) use of anticoagulants; Z79.82 Long term (current) use of aspirin; Z79.84 Long term (current) use of oral hypoglycemic drugs; Z79.899 Other long term (current) drug therapy | CPT/HCPCS: 93005 ==